=== PATIENT | female | born 1990 | race Caucasian/White ===

== ENCOUNTER → 2019-06-09 | Outpatient (CLI) | payer MEDICARE, MEDICAID ==
--- NOTE | 2019-06-10 09:53 | REP ---
OB ULTRASOUND COMPLETE SECOND TRIMESTER ANATOMY SCREEN: 06/09/2019 CLINICAL HISTORY: Supervision of . FINDINGS: There were no prior studies available for this gestation here. There is a single intrauterine gestation in vertex position. The cervix is 3 cm long and closed. There is a posterior grade 0 placenta without previa or abruption. Amniotic fluid volume is visually normal. No gross abnormalities evaluated in the adnexal regions, which are not optimally visualized due to gestational age. No evidence of a nuchal cord. Biometry:BPD 4.5 cm = 19 weeks 5 days HC 17.1 cm = 19 weeks 5 days AC 14 cm = 19 weeks 3 days FL 3.1 cm = 19 weeks 5 days HL 3.1 cm = 20 weeks 1 day This gives average ultrasound age 19 weeks 3 days with EDC 10/31/2019. By LMP she would be 19 weeks 1 day with EDC 11/02/2019. Estimated weight 299 grams or 10 ounces or 64th percentile for LMP. Measurement ratios are all normal range. ANATOMY SCREEN: The heart rate is 132 and regular. Cranial vault, lateral ventricles, choroid plexus, thalami, cavum septum pellucidum, cerebellum, cisterna magna, face and profile views, nose and lips, lungs, four-chamber heart view, ventricular outflow tracts, diaphragm, left-sided stomach bubble, cord insertion with three-vessels in the cord, kidneys and bladder, transverse and longitudinal views of the entire spine and the upper and lower extremities are all grossly normal without visible anomaly. IMPRESSION: 1. Single intrauterine gestation in 19 weeks 1 day by LMP, 19 weeks 3 days by composite ultrasound criteria today. Accordingly, EDC by LMP 11/02/2019 and the estimated weight 64th percentile for 19 weeks 1 day. 2. Heart rate 132 and normal. There is a vertex position with closed 3 cm long cervix and visually normal amniotic fluid volume. 3. There is a posterior grade 0 placenta without previa or abruption. 4. No visible anomalies. Electronically Signed by Gurpreet Gonzalez MD 06/10/2019 11:15 A
== END ==
LOC: M RAD 17:06
PROVIDERS: ATTEND Obstetrics & Gynecology
DX: Z34.82 Encounter for supervision of other normal pregnancy, second trimester (principal)

== ENCOUNTER → 2019-09-02 | Outpatient (CLI) | payer MEDICARE, MEDICAID ==
--- NOTE | 2019-09-03 07:12 | REP ---
OBSTETRIC SONOGRAPHY: HISTORY: Supervision of growth study. DALJIT. History of systemic lupus. FINDINGS: Scanning through the gravid uterus demonstrates a viable single intrauterine gestation in a cephalic lie. motion is observed and heart rate is recorded at 147 beats per minute. A right lateral grade three placenta is seen without evidence of previa or abruption. Amniotic fluid is subjectively normal. Closed cervical length is viewed transabdominally and measured at 2.7 cm. No extrauterine abnormalities observed. There has been appropriate interval growth. The following anatomic structures are again identified and felt to be unremarkable: cranium, choroid plexus, cavum, cerebellum and posterior fossa, face and profile, lungs, four-chamber heart with left and right ventricular outflow tract views, diaphragm, left-sided stomach, abdominal wall cord insertion, three-vessel cord, kidneys and bladder, spine. BIOMETRY CHART: BPD 7.7 cm = 31 weeks 0 days HC 28.7 cm = 31 weeks 4 days AC 26.0 cm = 30 weeks 1 day FL 6.1 cm = 31 weeks 4 days HL 5.5 cm = 32 weeks 0 days HC/AC ratio normal 1.10 Cephalic index normal 0.75. Estimated weight 1642 grams, 3 pounds 9 ounces, 32nd percentile for 31 weeks 2 days. DALJIT normal 9.0 cm. S/D ratio normal 2.76. IMPRESSION: Viable single intrauterine gestation at 31 weeks 2 days by today's composite sonographic criteria for expected gestational age estimate based on prior sonography is 31 weeks 4 days. KEYSHAWN by prior sonography October 31, 2019. Electronically Signed by Kvng Lomax MD 09/03/2019 09:06 A
== END ==
LOC: M RAD 17:07
PROVIDERS: ATTEND Advanced Practice Midwife
DX: O99.89 Other specified diseases and conditions complicating pregnancy, childbirth and the puerperium (principal); M32.9 Systemic lupus erythematosus, unspecified; Z3A.31 31 weeks gestation of pregnancy

== ENCOUNTER → 2019-09-16 | Outpatient (CLI) | payer MEDICARE, MEDICAID ==
[~2019-09-16] MED LIST: ASPI81TA85 PO; LEVO175T2 PO; MAPA500T2 PO; PLAQ200T4 PO; PRENTAB9 PO; PSEU30TA85 PO; SING10TA32 PO
[2019-09-16 14:01] LABS: HEMATOCRIT 39.2 % (36.0-47.0); HEMOGLOBIN 12.7 g/dl (12.0-15.5); MEAN CORPUSCULAR HEMOGLOBIN 31.7 pg (27.0-33.0); MEAN CORPUSCULAR HGB CONC 32.4 g/dl (32.0-36.5); MEAN CORPUSCULAR VOLUME 97.8 fl (80.0-96.0); PLATELET COUNT, AUTOMATED 176 10^3/uL (150-450); RED BLOOD COUNT 4.01 10^6/uL (4.00-5.40); WHITE BLOOD COUNT 9.6 10^3/uL (4.0-10.0)
[2019-09-16 14:30] LABS: CREATININE,RANDOM URINE 24.6 MG/DL; TOTAL PROTEIN,RANDOM URINE 70.1 MG/DL (0.0-12.0)
[2019-09-16 14:38] LABS: ALT/SGPT 18 U/L (12-78); BILIRUBIN,TOTAL 0.2 MG/DL (0.2-1.0); FREE T4 0.85 NG/DL (0.76-1.46); GLOMERULAR FILTRATION RATE > 60.0 (>60); GLUCOSE CHALLENGE TEST 1 HOUR 91 MG/DL (LESS THAN 140); LDH LACTATE DEHYDROGENASE 258 U/L (84-246); URIC ACID 6.4 MG/DL (2.6-6.0)
--- NOTE | 2019-09-17 09:04 | REP ---
OB ULTRASOUND: Real-time sonographic evaluation of the gravid uterus performed. There is a single living intrauterine gestation with an estimated gestational age 33 weeks 2 days, EDC 11/02/2019. Today's measurements indicate appropriate growth. Biometry and Growth: BPD 88 mm = 32 weeks 2 days, 35th percentile HC 308 mm = 34 weeks 3 days, 67th percentile AC 377 mm = 31 weeks 5 days, 27th percentile FL 63 mm = 32 weeks 5 days, 42nd percentile HC/AC ratio 1.1 within normal range. Estimated weight 1959 grams, 27th percentile. Visualized anatomy today includes lateral ventricles, posterior fossa, four chamber heart, stomach, cord insertion, three vessel cord, kidneys, bladder and spine, which are all grossly unremarkable. Cervical length: Cervix is closed and measures 2.7 cm in length. heart rate: 155 beats per minute. position: Vertex. Placenta: Posterior and to the right, grade 3 with no previa or abruption. Amniotic fluid: Within normal limits. DALJIT 9.7 within normal range of 8.2 to 24.6. Biophysical profile score 8.8. S/D ratio 2.19 within normal range of 2.0 to 3.0. RI: 0.54 below normal range of 0.59 to 0.75. Electronically Signed by Eliud Whatley MD 09/17/2019 11:28 A
== END ==
LOC: M RAD 12:04
PROVIDERS: ATTEND Advanced Practice Midwife
DX: O13.3 Gestational [pregnancy-induced] hypertension without significant proteinuria, third trimester (principal); Z3A.33 33 weeks gestation of pregnancy; E03.9 Hypothyroidism, unspecified; O99.283 Endocrine, nutritional and metabolic diseases complicating pregnancy, third trimester; O26.893 Other specified pregnancy related conditions, third trimester; M32.9 Systemic lupus erythematosus, unspecified

== ENCOUNTER 2019-09-17 12:52 | Outpatient (CLI) | payer MEDICARE, MEDICAID ==
[~2019-09-17] VITALS: Ht 160 cm; Wt 87.1 kg
[2019-09-17] MEDS ORDERED: LEVO175T2 PO (13:48)
[2019-09-17] MEDS ORDERED: PLAQ200T4 PO (13:48)
[2019-09-17] MEDS ORDERED: SING10TA32 PO (13:48)
[2019-09-17] MEDS ORDERED: PSEU30TA85 PO (13:48)
[2019-09-17] MEDS ORDERED: ASPI81TA85 PO (13:48)
[2019-09-17] MEDS ORDERED: MAPA500T2 PO (13:48)
[2019-09-17] MEDS ORDERED: PRENTAB9 PO (13:48)
== END 2019-09-17 14:25 | disposition home or self-care (01) ==
LOC: M LDO 12:52
PROVIDERS: ATTEND Obstetrics & Gynecology
DX: O13.3 Gestational [pregnancy-induced] hypertension without significant proteinuria, third trimester (principal); Z3A.33 33 weeks gestation of pregnancy

== ENCOUNTER 2019-09-23 16:09 | Inpatient (IN) | payer MEDICARE, MEDICAID ==
[~2019-09-23] VITALS: Ht 160 cm; Wt 88.1 kg
[2019-09-23] VITALS (9 sets, daily range): BP systolic 138–174; BP diastolic 65–84
[2019-09-23] MEDS ORDERED: BETAMETHASONE SOLUSPAN 6MG/ML INJ 5ML (J0702) IM SCH (17:30)
--- NOTE | 2019-09-23 17:53 | HPEPDOC ---
Obstetrical History & Physical General Date of Admission Sep 23, 2019 at 17:14 Primary Care Physician: LINDSEY NEGRETE CNM History of Present Illness Patient is a 29-year-old female who is a at 34.2 weeks gestation with an KEYSHAWN of 11/02/19 based off of a first trimester ultrasound. She initiated care in her first trimester with AWP. Her has been complicated by lupus and hypothyroidism. She presents to L&D after being sent over from the office with severe range pressures. She denies any preeclamptic symptoms beyond feeling fatigued and "not like herself." She rpeorts active movement. She denies leaking of fluid, contractions, or vaginal bleeding. Chief Complaint: Pre-eclamsia Information Provided By: Patient Age: 29 : 1 Term: 0 Pre-term: 0 Abortions: 0 Livin Care Care: Good Care Dating Final EDC: Nov 02, 2019 Final EDC by: 1st trimester (US) EGA at Admission: 342 Antepartum Course Diagnos(e)s Preeclampsia with severe features Lupus Baljeet's Height (inches): 63 Pre- weight (lbs.): 136 Admission Weight (lbs.): 194 Change in Weight (lbs.): 58 Past Medical History Past Obstetrical History : Past Obstetrical History: Primgravida Past Medical History Medical History Hypothyroidism Lupus Baljeet's Surgical History: Upper endoscopy Family History Significant Family History: Diabetes, Heart disease, Hypertension, Renal diseas e, Other (lupus) Social History Marital Status: Single Family situation: Spouse/partner home Psychosocial History: No pertinent psych hx * Smoker: non-smoker Alcohol: Denies Drugs: denies Abuse Violence Screening Have you been hit/kicked/slapp: No Have you been sexually assault: No Allergies Coded Allergies: adhesive (Verified Allergy, Severe, 09/17/19) blisters amoxicillin (Verified Allergy, Intermediate, 09/17/19) rash Medications Scheduled Aspirin (Aspir 81) 81 Mg Tablet.dr, 81 MG PO DAILY for pain Lactobacillus Combo No.11 (Probiotic) 1 Each Cap.sprink, 1 CAP PO DAILY Levothyroxine Sodium (Levothyroxine Sodium) 175 Mcg Tablet, 175 MCG PO DAILY Montelukast Sodium (Singulair) 10 Mg Tablet, 1 TAB PO DAILY No.137/Iron/Folic Acd ( Vitamin Tablet) 1 Each Tablet, 1 TAB PO DAILY Vitamin D (Vitamin D3) 1,000 Unit Tablet, 400 UNITS PO DAILY Scheduled PRN Albuterol Sulfate (Ventolin Hfa) 18 Gm Hfa.aer.ad, 2 PUFF INH Q4-6HP PRN for wheezing Miscellaneous Medications Hydroxychloroquine Sulfate (Plaquenil) 200 Mg Tablet, 200 MG PO Physical Examination Physical Examination GENERAL: Alert and oriented times three. BREAST: . ABDOMEN: Gravid and non-tender to touch. FETUS: Is vertex (VTX) by sterile vaginal examination (SVE), fetus is vertex (VTX) by Daniel. HEART RATE: Regular rate and rhythm. LUNGS: Clear to auscultation (CTA). EXTREMITIES: Pitting edema on legs and feet. No clonus. Deep tendon reflexes (DTRs) + 3. Vital Signs/I&O Vital Signs Label Value Date Time Pulse 89 09/23/19 1835 Blood Pressure Assessment 192/86 09/23/19 1835 Laboratory Data 24H LABS Item Value Date Time Creatinine 0.83 MG/DL 09/23/19 1801 Glomerular Filtration Rate > 60.0 09/23/19 1801 Uric Acid 7.5 MG/DL H 09/23/19 1801 Total Bilirubin 0.2 MG/DL 09/23/19 1801 Aspartate Amino Transf (AST/SGOT) 28 U/L 09/23/19 1801 Alanine Aminotransferase (ALT/SGPT) 23 U/L 09/23/19 1801 Lactate Dehydrogenase 290 U/L H 09/23/19 1801 Item Value Date Time Urine Random Creatinine 41.9 MG/DL 09/23/19 1801 Urine Random Total Protein 137.5 MG/DL H 09/23/19 1801 CBC/BMP Item Value Date Time White Blood Count 10.3 10^3/uL H 09/23/19 1801 Red Blood Count 4.04 10^6/uL 09/23/19 1801 Hemoglobin 12.6 g/dl 09/23/19 1801 Hematocrit 39.1 % 09/23/19 1801 Mean Corpuscular Volume 96.8 fl H 09/23/19 1801 Mean Corpuscular Hemoglobin 31.2 pg 09/23/19 1801 Mean Corpuscular Hemoglobin Concent 32.2 g/dl 09/23/19 1801 Red Cell Distribution Width 14.4 % 09/23/19 1801 Platelet Count 175 10^3/uL 09/23/19 1801 Urine Culture: No Growth Pertinent Laboratoy Data Blood Type: B+ RBC Antibody Screen: Negative HIV: Negative Hepatitis B: Negative Hepatitis C: Negative Rapid Plasma Reagin: Nonreactive Rubella: Immune Chlamydia/Gonorrhea: Negative Group B Streptococcus: Unknown Diag/Inter Therapy NIPT: low risk normal male Assessment Heart Rate (FHR): 120 Variability: Moderate Accelerations: Positive Decelerations: None Tocometer Contractions: Yes Frequency: irregular Assessment/Plan Assessment IUP at 34.2 weeks gestation preeclampsia with severe features Category I FHR tracing GBS unknown Plan Dr. Kerns consulted on plan of care. Admit patient to L&D. OOB to BR. Diet: NPO. Group B Streptococcus (GBS) unknown. Labs and intravenous (IV) per unit protocol. Labetalol 20 mg via IV to be given stat. Magnesium 4 gram loading dose followed by 2 grams per hour. Lactated Ringers (LR): 75 mL/hr. Consider betamethasone. Anesthesia and neonatology consult done. Patient counseled on delivery and mode of delivery due to increasing pressures and status of labs. section to be done per Dr. Kerns's recommendation. LINDSEY NEGRETE CNM Sep 23, 2019 17:53
[2019-09-23] MEDS ORDERED: LABETALOL HCL 100 MG/20 ML VIAL IV STA ×2 (18:09→23:14)
[2019-09-23] MEDS ORDERED: LABETALOL HCL 100 MG/20 ML VIAL As Ordered ONE (18:10)
[2019-09-23] MEDS ORDERED: MAGNESIUM SULFATE 4% INJ 20GM/500ML (40MG/ML) (J3475) As Ordered ONE (18:23)
[2019-09-23] MEDS ORDERED: MAGNESIUM *L&D* 4 GM/100 ML BAG (40MG/ML) (J3475) As Ordered ONE (18:23)
[2019-09-23 18:28] LABS: HEMATOCRIT 39.1 % (36.0-47.0); HEMOGLOBIN 12.6 g/dl (12.0-15.5); MEAN CORPUSCULAR HEMOGLOBIN 31.2 pg (27.0-33.0); MEAN CORPUSCULAR HGB CONC 32.2 g/dl (32.0-36.5); MEAN CORPUSCULAR VOLUME 96.8 fl (80.0-96.0); PLATELET COUNT, AUTOMATED 175 10^3/uL (150-450); RED BLOOD COUNT 4.04 10^6/uL (4.00-5.40); WHITE BLOOD COUNT 10.3 10^3/uL (4.0-10.0)
[2019-09-23] MEDS ORDERED: CHOL100029 PO (18:44)
[2019-09-23] MEDS ORDERED: PROBCAP17 PO (18:44)
[2019-09-23] MEDS ORDERED: VENTAER INH (18:44)
[2019-09-23 18:46] LABS: ALT/SGPT 23 U/L (12-78); BILIRUBIN,TOTAL 0.2 MG/DL (0.2-1.0); CREATININE FOR GFR 0.83 MG/DL (0.55-1.30); GLOMERULAR FILTRATION RATE > 60.0 (>60); LDH LACTATE DEHYDROGENASE 290 U/L (84-246); URIC ACID 7.5 MG/DL (2.6-6.0)
[2019-09-23 18:59] LABS: CREATININE,RANDOM URINE 41.9 MG/DL; TOTAL PROTEIN,RANDOM URINE 137.5 MG/DL (0.0-12.0)
[2019-09-23] MEDS ORDERED: hydrALAZINE INJ 20 MG/ML VIAL IV ONE (19:00)
[2019-09-23] MEDS ORDERED: MAGNESIUM *L&D* 4 GM/100 ML BAG (40MG/ML) (J3475) IV ONE (19:00)
[2019-09-23] MEDS ORDERED: ceFAZolin 2 GM/D5W 50 ML IV BAG (J0690 PER 500MG) As Ordered ONE (19:41)
[2019-09-23] MEDS ORDERED: BICITRA 30ML SOLN UDC As Ordered ONE (19:42)
[2019-09-23] MEDS ORDERED: ceFAZolin SOD 2 GM in IV 1 EA IV ONE (19:45)
[2019-09-23] MEDS ORDERED: BICITRA 30ML SOLN UDC PO ONE (19:45)
[2019-09-23] MEDS ORDERED: dexameTHASONE 4 MG/ML 1ML VIAL (J1100) As Ordered ONE (19:59)
[2019-09-23] MEDS ORDERED: KETOROLAC 60 MG/2 ML VIAL (J1885) As Ordered ONE (19:59)
[2019-09-23] MEDS ORDERED: OXYTOCIN INJ 10 UNITS/ML VIAL (J2590) As Ordered ONE (19:59)
[2019-09-23] MEDS ORDERED: ONDANSETRON 4MG/2ML VIAL (J2405) As Ordered ONE (19:59)
[2019-09-23] MEDS ORDERED: fentaNYL 100 MCG/2 ML INJECTION (J3010) As Ordered ONE (20:00)
[2019-09-23] MEDS ORDERED: MORPHINE PRES-FREE INJ 10 MG/10 ML VIAL (J2274) As Ordered ONE (20:02)
[2019-09-23] MEDS ORDERED: NALOXONE INJ 0.4 MG/1 ML VIAL (J2310) IV PRN ×2 (20:14)
[2019-09-23] MEDS ORDERED: diphenhydrAMINE INJ 50MG/ML VIAL (J1200) IV PRN (20:14)
[2019-09-23] MEDS ORDERED: ONDANSETRON 4MG/2ML VIAL (J2405) IV PRN ×2 (20:14→22:00)
[2019-09-23] MEDS ORDERED: NALBUPHINE HCL 10 MG/ML AMP (J2300) IV PRN (20:14)
[2019-09-23] MEDS ORDERED: METOCLOPRAMIDE INJ 10MG/2ML VIAL (J2765) IV PRN (20:14)
[2019-09-23] MEDS ORDERED: ePHEDrine SULFATE 25 MG/5 ML(5MG/ML) SYRINGE As Ordered ONE (20:30)
[2019-09-23 20:53] LABS: CORD GAS ABE V -4.8; CORD GAS HCO3 V 21.8 MEQ/L; CORD GAS O2 SAT V 26.9 %; CORD GAS PCO2 V 45.9 mmHg; CORD GAS PH V 7.295 UNITS; CORD GAS PO2 V 16.3 mmHg; CORD GAS SBC V 18.7 MEQ/L; CORD GAS TCO2 V 23.2 MEQ/L
[2019-09-23 20:56] LABS: CORD GAS ABE A -4.1; CORD GAS HCO3 A 24.5 MEQ/L; CORD GAS O2 SAT A < 15.0 %; CORD GAS PCO2 A 58.3 mmHg; CORD GAS PH A 7.242 UNITS; CORD GAS PO2 A 10.8 mmHg; CORD GAS TCO2 A 26.3 MEQ/L
[2019-09-23 20:59] LABS: CORD GAS SBC A 24.5 MEQ/L
[2019-09-23] MEDS: MAG Sulf (OBGYN) 20GM/500ML 20,000 MG in IV 1 EA IV SCH (21:25)
[2019-09-23] MEDS ORDERED: OXYTOCIN DRIP 30 UNITS in IV 1 EA IV SCH (21:32)
[2019-09-23] MEDS ORDERED: MEASLES,MUMPS,RUBELLA VACCINE INJ (MMR-II) (90707) SC SCH (21:45)
[2019-09-23] MEDS ORDERED: PROMETHAZINE 25 MG TAB PO PRN (21:45)
[2019-09-23] MEDS ORDERED: RHOGAM 300 MCG (1500 IU) INJ (J2790) IM SCH (21:45)
[2019-09-23] MEDS ORDERED: ONDANSETRON 4 MG TAB (S0181) PO PRN (21:45)
[2019-09-23 21:53] LABS: HEMATOCRIT 33.3 % (36.0-47.0); HEMOGLOBIN 10.7 g/dl (12.0-15.5); MEAN CORPUSCULAR HEMOGLOBIN 31.8 pg (27.0-33.0); MEAN CORPUSCULAR HGB CONC 32.1 g/dl (32.0-36.5); MEAN CORPUSCULAR VOLUME 99.1 fl (80.0-96.0); PLATELET COUNT, AUTOMATED 135 10^3/uL (150-450); RED BLOOD COUNT 3.36 10^6/uL (4.00-5.40); WHITE BLOOD COUNT 10.8 10^3/uL (4.0-10.0)
[2019-09-23] MEDS ORDERED: fentaNYL 100 MCG/2 ML INJECTION (J3010) IV PRN (22:00)
[2019-09-23] MEDS ORDERED: LR 1,000 ML IV SCH (22:00)
[2019-09-23 22:16] LABS: CREATININE FOR GFR 0.84 MG/DL (0.55-1.30); GLOMERULAR FILTRATION RATE > 60.0 (>60)
[2019-09-24] VITALS (42 sets, daily range): BP systolic 97–180; BP diastolic 53–94
[2019-09-24] MEDS ORDERED: LABETALOL HCL 100 MG/20 ML VIAL IV STA ×2 (01:09→19:56)
[2019-09-24] MEDS ORDERED: ENOXAPARIN 40 MG/0.4 ML SYRINGE (J1650) SC ONE (03:00)
[2019-09-24] MEDS: KETOROLAC 30 MG/ML VIAL (J1885) IV SCH ×3 (03:17→15:26)
[2019-09-24] MEDS: LR 1,000 ML IV SCH ×2 (04:08→17:16)
[2019-09-24 05:55] LABS: HEMATOCRIT 36.7 % (36.0-47.0); HEMOGLOBIN 11.7 g/dl (12.0-15.5); MEAN CORPUSCULAR HGB CONC 31.9 g/dl (32.0-36.5); MEAN CORPUSCULAR VOLUME 97.3 fl (80.0-96.0); PLATELET COUNT, AUTOMATED 153 10^3/uL (150-450); RED BLOOD COUNT 3.77 10^6/uL (4.00-5.40); WHITE BLOOD COUNT 14.8 10^3/uL (4.0-10.0)
[2019-09-24] MEDS: MAG Sulf (OBGYN) 20GM/500ML 20,000 MG in IV 1 EA IV SCH ×2 (06:10→15:26)
[2019-09-24] MEDS: PRENATAL VITAMINS CHEWABLE TABLET PO SCH (08:49)
[2019-09-24] MEDS: DOCUSATE SODIUM 100 MG CAP PO SCH ×2 (08:49→21:53)
[2019-09-24] MEDS: PERCOCET 5MG/325MG TAB PO PRN ×2 (08:50→17:30)
[2019-09-24] MEDS: LEVOTHYROXINE 125MCG TABLET (0.125MG) PO SCH (09:31)
[2019-09-24] MEDS: LEVOTHYROXINE 50MCG TABLET (0.05MG) PO SCH (09:32)
[2019-09-24] MEDS: ENOXAPARIN 40 MG/0.4 ML SYRINGE (J1650) SC SCH (10:33)
[2019-09-24] MEDS ORDERED: zolPIDEM TARTRATE 5 MG TAB PO ONE (11:00)
[2019-09-24] MEDS ORDERED: SODIUM CHLORIDE NASAL 0.65% SPRAY BTL (OCEAN) PRN (19:00)
[2019-09-24] MEDS: LABETALOL 200 MG TAB PO SCH (19:16)
[2019-09-24] MEDS: IBUPROFEN 800 MG TAB PO SCH (21:53)
[2019-09-25] VITALS (12 sets, daily range): BP systolic 109–184; BP diastolic 61–98
[2019-09-25] MEDS: PERCOCET 5MG/325MG TAB PO PRN ×5 (00:28→22:22)
[2019-09-25] MEDS: LEVOTHYROXINE 125MCG TABLET (0.125MG) PO SCH (06:07)
[2019-09-25] MEDS: LEVOTHYROXINE 50MCG TABLET (0.05MG) PO SCH (06:07)
[2019-09-25] MEDS: IBUPROFEN 800 MG TAB PO SCH ×3 (06:57→23:04)
[2019-09-25] MEDS: ENOXAPARIN 40 MG/0.4 ML SYRINGE (J1650) SC SCH (08:13)
[2019-09-25] MEDS: PRENATAL VITAMINS CHEWABLE TABLET PO SCH (08:14)
[2019-09-25] MEDS: DOCUSATE SODIUM 100 MG CAP PO SCH ×2 (08:14→21:38)
[2019-09-25] MEDS: LABETALOL 200 MG TAB PO SCH ×3 (08:17→21:39)
[2019-09-26] VITALS (8 sets, daily range): BP systolic 138–178; BP diastolic 82–98
[2019-09-26] MEDS: LEVOTHYROXINE 125MCG TABLET (0.125MG) PO SCH (06:04)
[2019-09-26] MEDS: LEVOTHYROXINE 50MCG TABLET (0.05MG) PO SCH (06:04)
[2019-09-26] MEDS: PERCOCET 5MG/325MG TAB PO PRN ×4 (06:05→20:07)
[2019-09-26] MEDS: IBUPROFEN 800 MG TAB PO SCH ×3 (07:47→23:19)
[2019-09-26] MEDS: LABETALOL 200 MG TAB PO SCH (07:47)
[2019-09-26] MEDS ORDERED: LABETALOL 100 MG TAB PO ONE (08:30)
[2019-09-26] MEDS: DOCUSATE SODIUM 100 MG CAP PO SCH ×2 (09:10→20:58)
[2019-09-26] MEDS: PRENATAL VITAMINS CHEWABLE TABLET PO SCH (09:10)
[2019-09-26] MEDS: ENOXAPARIN 40 MG/0.4 ML SYRINGE (J1650) SC SCH (09:11)
[2019-09-26] MEDS: LABETALOL 100 MG TAB PO SCH ×2 (15:05→21:00)
[2019-09-26] MEDS ORDERED: NIFEdipine 10 MG CAP PO ONE (23:00)
[2019-09-27] VITALS (9 sets, daily range): BP systolic 127–180; BP diastolic 77–98
[2019-09-27] MEDS: PERCOCET 5MG/325MG TAB PO PRN ×5 (01:24→20:56)
[2019-09-27] MEDS: LEVOTHYROXINE 50MCG TABLET (0.05MG) PO SCH (06:14)
[2019-09-27] MEDS: LEVOTHYROXINE 125MCG TABLET (0.125MG) PO SCH (06:14)
[2019-09-27] MEDS: IBUPROFEN 800 MG TAB PO SCH ×3 (06:57→22:33)
[2019-09-27] MEDS: LABETALOL 200 MG TAB PO SCH ×3 (06:58→20:57)
[2019-09-27] MEDS: PRENATAL VITAMINS CHEWABLE TABLET PO SCH (08:47)
[2019-09-27] MEDS: DOCUSATE SODIUM 100 MG CAP PO SCH ×2 (08:47→20:56)
[2019-09-27] MEDS: ENOXAPARIN 40 MG/0.4 ML SYRINGE (J1650) SC SCH (08:48)
[2019-09-27] MEDS ORDERED: NIFEdipine 30 MG XL TAB PO ONE ×2 (21:00)
[2019-09-28 02:30] VITALS: BP 156/77
[2019-09-28 06:04] VITALS: BP 142/75
[2019-09-28] MEDS: LEVOTHYROXINE 125MCG TABLET (0.125MG) PO SCH (06:19)
[2019-09-28] MEDS: LEVOTHYROXINE 50MCG TABLET (0.05MG) PO SCH (06:19)
[2019-09-28] MEDS: IBUPROFEN 800 MG TAB PO SCH (06:20)
[2019-09-28] MEDS: PRENATAL VITAMINS CHEWABLE TABLET PO SCH (08:40)
[2019-09-28] MEDS: DOCUSATE SODIUM 100 MG CAP PO SCH (08:40)
[2019-09-28] MEDS: ENOXAPARIN 40 MG/0.4 ML SYRINGE (J1650) SC SCH (08:41)
[2019-09-28 08:57] VITALS: BP 166/98
[2019-09-28] MEDS ORDERED: LABE20TAB PO (08:59)
[2019-09-28] MEDS: PERCOCET 5MG/325MG TAB PO PRN (08:59)
[2019-09-28] MEDS ORDERED: IBUP80TA PO (08:59)
[2019-09-28] MEDS ORDERED: PERCOCET PO (08:59)
[2019-09-28 09:01] VITALS: BP 166/98
[2019-09-28] MEDS: LABETALOL 200 MG TAB PO SCH (09:01)
--- NOTE | 2019-09-28 09:10 | DS.PDOC ---
Discharge Summary General Date of Admission Sep 23, 2019 at 17:14 Date of Discharge 09/28/2019 Attending Physician: VERONICA BANKS DO Discharge Summary PROCEDURES PERFORMED DURING STAY: primary section. ADMITTING DIAGNOSES: 1. IUP at 34+ weeks with preeclampsia with severe features. DISCHARGE DIAGNOSES: 1. postoperative day 5. 2. Preeclampsia with severe features. COMPLICATIONS/CHIEF COMPLAINT: Bp Monitoring. HISTORY OF PRESENT ILLNESS: Patient is a 29-year-old female who presented to L&D after being sent over from the office with multiple severe range BP's. She was given labetalol to help decrease her BP and put on Magnesium. the decision was made due to her BP's to proceed with a primary section. Her spot urine was over 3. After her section she continued on Magnesium for 24 hours and was placed on Lovenox due to preeclampsia and lupus. She has also been placed on Labetalol 400 mg TID to help manage her BP's. She has continued to deny any preeclamptic symptoms. DISCHARGE MEDICATIONS: Please see below. ALLERGIES: Please see below. PHYSICAL EXAMINATION ON DISCHARGE: VITAL SIGNS: Please see below. GENERAL: HEENT: NECK: CARDIOVASCULAR EXAMINATION: RESPIRATORY EXAMINATION: ABDOMINAL EXAMINATION: EXTREMITIES: SKIN: NEUROLOGICAL EXAMINATION: PSYCHIATRIC EXAMINATION: LABORATORY DATA: Please see below. ACTIVITY: No heavy lifting and pelvic rest. DIET: regular DISCHARGE INSTRUCTIONS: 1. Patient to be discharged to home today. 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 2. She is to follow up in 1-3 days for a repeat BP check in the office and 1 week for BP check and incision check. She also will be seen in 6-8 weeks for visit. 3. Extensive education done on preeclamptic symptoms, mastitis, infection, incision care, pain management, DVT, pulmonary embolism and fever, pelvic rest. DISCHARGE CONDITION: Stable. TIME SPENT ON DISCHARGE: Greater than minutes. Vital Signs/I&Os Vital Signs Date Time Temp Pulse Resp B/P (MAP) Pulse Ox O2 Delivery O2 Flow Rate FiO2 09/28/19 08:59 16 09/28/19 08:57 80 166/98 (120) 09/28/19 06:04 98.1 09/28/19 02:30 Room Air 09/27/19 20:33 99 Discharge Medications Scheduled Labetalol HCl (Labetalol HCl) 200 Mg Tablet, 400 MG PO TID Lactobacillus Combo No.11 (Probiotic) 1 Each Cap.sprink, 1 CAP PO DAILY, (Reported) Levothyroxine Sodium (Levothyroxine Sodium) 175 Mcg Tablet, 175 MCG PO DAILY, (Reported) Montelukast Sodium (Singulair) 10 Mg Tablet, 1 TAB PO DAILY, (Reported) No.137/Iron/Folic Acd ( Vitamin Tablet) 1 Each Tablet, 1 TAB PO DAILY, (Reported) Vitamin D (Vitamin D3) 1,000 Unit Tablet, 400 UNITS PO DAILY, (Reported) Scheduled PRN Albuterol Sulfate (Ventolin Hfa) 18 Gm Hfa.aer.ad, 2 PUFF INH Q4-6HP PRN for w heezing, (Reported) Ibuprofen (Ibuprofen) 800 Mg Tablet, 800 MG PO Q8HP PRN for PAIN Oxycodone/Acetaminophen (Oxycodone-Acetaminophen 5-325) 1 Each Tablet, 1 TAB PO Q4HP PRN for MILD/MODERATE PAIN (PS 1-7) Miscellaneous Medications Hydroxychloroquine Sulfate (Plaquenil) 200 Mg Tablet, 200 MG PO, (Reported) Allergies Coded Allergies: adhesive (Verified Allergy, Severe, 09/17/19) blisters amoxicillin (Verified Allergy, Intermediate, 09/17/19) rash LINDSEY NEGRETE CNM Sep 28, 2019 09:10
== END 2019-09-28 13:00 | disposition home or self-care (01) | DRG 788 ==
LOC: M LDO 16:09 → M LDI 17:14 → M OBS 09-24 23:00
PROVIDERS: ADMIT Advanced Practice Midwife; ATTEND Obstetrics & Gynecology
PROC: 10D00Z1 Extraction of Products of Conception, Low, Open Approach (ICD-10-PCS; principal; 2019-09-24)
DX: O14.14 Severe pre-eclampsia complicating childbirth (principal); Z3A.34 34 weeks gestation of pregnancy; E03.9 Hypothyroidism, unspecified; O99.284 Endocrine, nutritional and metabolic diseases complicating childbirth; M32.9 Systemic lupus erythematosus, unspecified; O26.893 Other specified pregnancy related conditions, third trimester; Z79.899 Other long term (current) drug therapy; Z88.0 Allergy status to penicillin

== ENCOUNTER → 2022-09-06 | Outpatient (REF) | payer MEDICARE, MEDICAID ==
[~2022-09-06] MED LIST changes: -ASPI81TA85 PO; +ASPI81TA86 PO; +CHOL100029 PO; +IBUP80TA PO; +LABE20TAB PO; +PERCOCET PO; +PROBCAP17 PO; -PSEU30TA85 PO; +PSEU30TA86 PO; +VENTAER INH
== END ==
LOC: M PLALAB 16:05
PROVIDERS: ATTEND Advanced Practice Midwife
DX: Z34.82 Encounter for supervision of other normal pregnancy, second trimester (principal)

== ENCOUNTER → 2022-10-17 | Outpatient (CLI) | payer MEDICARE, MEDICAID ==
[~2022-10-17] MED LIST changes: +MONT-5 PO; -SING10TA32 PO
== END ==
LOC: M RAD 16:20
PROVIDERS: ATTEND Advanced Practice Midwife
DX: O32.1XX0 Maternal care for breech presentation, not applicable or unspecified (principal); Z3A.20 20 weeks gestation of pregnancy

== ENCOUNTER → 2023-01-02 | Outpatient (CLI) | payer MEDICARE, MEDICAID ==
[2023-01-02 18:15] LABS: HEMATOCRIT 38.4 % (36.0-47.0); HEMOGLOBIN 12.5 g/dl (12.0-15.5); MEAN CORPUSCULAR HEMOGLOBIN 29.1 pg (27.0-33.0); MEAN CORPUSCULAR HGB CONC 32.6 g/dl (32.0-36.5); MEAN CORPUSCULAR VOLUME 89.5 fl (80.0-96.0); PLATELET COUNT, AUTOMATED 259 10^3/uL (150-450); RED BLOOD COUNT 4.29 10^6/uL (4.00-5.40); WHITE BLOOD COUNT 11.3 10^3/uL (4.0-10.0)
[2023-01-02 18:32] LABS: URIC ACID 7.9 MG/DL (3.1-7.8)
[2023-01-02 18:33] LABS: TOTAL PROTEIN,RANDOM URINE 8.8 MG/DL (0.0-14.0)
[2023-01-02 18:34] LABS: LDH LACTATE DEHYDROGENASE 209 U/L (120-246)
[2023-01-02 18:35] LABS: ALT/SGPT 19 U/L (7.0-40); AST/SGOT 23 U/L (<34); BILIRUBIN,TOTAL 0.2 MG/DL (0.3-1.2); CREATININE FOR GFR 0.83 MG/DL (0.55-1.30); GLOMERULAR FILTRATION RATE > 60.0 (>60)
[2023-01-02 18:37] LABS: CREATININE,RANDOM URINE 62.5 MG/DL
[2023-01-02 19:02] LABS: HIV 1&2 SCREEN CENTAUR NEGATIVE (NEGATIVE)
[2023-01-02 19:10] LABS: HEPATITIS C VIRUS ABY INDEX < 0.0 INDEX (<0.8)
[2023-01-02 19:32] LABS: GC DNA AMPLIFICATION NEGATIVE (NEGATIVE)
[2023-01-05 15:10] LABS: CARDIOLIPIN IGA ANTIBODY <9 APL U/mL (0-11); CARDIOLIPIN IGG ANTIBODY <9 GPL U/mL (0-14); CARDIOLIPIN IGM ANTIBODY <9 MPL U/mL (0-12); SSA SJOGRENS A <0.2 AI (0.0-0.9); SSB SJOGRENS B <0.2 AI (0.0-0.9)
== END ==
LOC: M PLALAB 14:22
PROVIDERS: ATTEND Advanced Practice Midwife
DX: O99.112 Other diseases of the blood and blood-forming organs and certain disorders involving the immune mechanism complicating pregnancy, second trimester (principal); Z79.899 Other long term (current) drug therapy

== ENCOUNTER → 2023-01-02 | Outpatient (CLI) | payer MEDICARE, MEDICAID | LOC: M PLALAB 14:24 | PROVIDERS: ATTEND Advanced Practice Midwife | DX: Z34.82 Encounter for supervision of other normal pregnancy, second trimester (principal) ==

== ENCOUNTER → 2023-01-02 | Outpatient (CLI) | payer MEDICARE, MEDICAID | LOC: M PLALAB 14:27 | PROVIDERS: ATTEND Obstetrics & Gynecology | DX: Z34.81 Encounter for supervision of other normal pregnancy, first trimester (principal) ==

== ENCOUNTER → 2023-01-08 | Outpatient (REF) | payer MEDICARE, MEDICAID ==
[2023-01-08 18:22] LABS: TOTAL PROTEIN,RANDOM URINE 33.8 MG/DL (0.0-14.0)
[2023-01-08 18:26] LABS: CREATININE,RANDOM URINE 107.5 MG/DL
== END ==
LOC: M SFHCWAGY 17:29
PROVIDERS: ATTEND Obstetrics & Gynecology
DX: M32.9 Systemic lupus erythematosus, unspecified (principal)

== ENCOUNTER → 2023-01-29 | Outpatient (REF) | payer MEDICARE, MEDICAID ==
[~2023-01-29] MED LIST changes: +CALC-354 PO
== END ==
LOC: M PLALAB 13:30
PROVIDERS: ATTEND Obstetrics & Gynecology
DX: O13.3 Gestational [pregnancy-induced] hypertension without significant proteinuria, third trimester (principal); Z3A.36 36 weeks gestation of pregnancy

== ENCOUNTER → 2023-01-29 | Outpatient (CLI) | payer MEDICARE, MEDICAID ==
[2023-01-29 19:34] LABS: HEMATOCRIT 36.2 % (36.0-47.0); HEMOGLOBIN 11.8 g/dl (12.0-15.5); MEAN CORPUSCULAR HEMOGLOBIN 28.4 pg (27.0-33.0); MEAN CORPUSCULAR HGB CONC 32.6 g/dl (32.0-36.5); PLATELET COUNT, AUTOMATED 260 10^3/uL (150-450); RED BLOOD COUNT 4.16 10^6/uL (4.00-5.40); WHITE BLOOD COUNT 11.2 10^3/uL (4.0-10.0)
[2023-01-29 19:52] LABS: URIC ACID 9.9 MG/DL (3.1-7.8)
[2023-01-29 19:55] LABS: ALT/SGPT 11 U/L (7.0-40); AST/SGOT 20 U/L (<34); BILIRUBIN,TOTAL 0.2 MG/DL (0.3-1.2); CREATININE FOR GFR 1.03 MG/DL (0.55-1.30); CREATININE,RANDOM URINE 106.3 MG/DL; GLOMERULAR FILTRATION RATE > 60.0 (>60); LDH LACTATE DEHYDROGENASE 210 U/L (120-246)
== END ==
LOC: M PLALAB 14:54
PROVIDERS: ATTEND Obstetrics & Gynecology
DX: O13.3 Gestational [pregnancy-induced] hypertension without significant proteinuria, third trimester (principal); Z3A.36 36 weeks gestation of pregnancy

== ENCOUNTER → 2024-10-22 | Outpatient (CLI) | payer MEDICARE, MEDICAID ==
[~2024-10-22] MED LIST changes: -PSEU30TA86 PO; +PSEU30TA87 PO
[2024-10-22 19:43] LABS: BASO # 0.1 10^3/uL (0.0-0.2); BASO % 0.9 % (0.0-1.0); EOS # 0.6 10^3/uL (0.0-0.5); EOS % 7.5 % (0.0-3.0); HEMATOCRIT 39.9 % (36.0-47.0); HEMOGLOBIN 12.8 g/dl (12.0-15.5); LYMPH # 3.3 10^3/uL (1.5-5.0); LYMPH % 38.8 % (24.0-44.0); MEAN CORPUSCULAR HEMOGLOBIN 29.2 pg (27.0-33.0); MEAN CORPUSCULAR HGB CONC 32.1 g/dl (32.0-36.5); MEAN CORPUSCULAR VOLUME 90.9 fl (80.0-96.0); MONO # 0.7 10^3/uL (0.0-0.8); MONO % 7.9 % (2.0-8.0); NEUTROPHILS # 3.8 10^3/uL (1.5-8.5); NEUTROPHILS % 44.7 % (36.0-66.0); PLATELET COUNT, AUTOMATED 334 10^3/uL (150-450); RED BLOOD COUNT 4.39 10^6/uL (4.00-5.40); WHITE BLOOD COUNT 8.5 10^3/uL (4.0-10.0)
[2024-10-22 19:49] LABS: C REACTIVE PROTEIN QUANTITATIV < 0.50 MG/DL (<1.0)
[2024-10-22 19:50] LABS: ALBUMIN 4.1 G/DL (3.2-5.2); ALKALINE PHOSPHATASE 66 U/L (35-104); ALT/SGPT 33 U/L (7.0-40); AST/SGOT 19 U/L (<34); BILIRUBIN,TOTAL 0.2 MG/DL (0.3-1.2); BLOOD UREA NITROGEN 11 MG/DL (9-23); CALCIUM LEVEL 9.2 MG/DL (8.5-10.1); CARBON DIOXIDE LEVEL 24 MMOL/L (20-31); CHLORIDE LEVEL 107 MMOL/L (98-107); CREATININE FOR GFR 0.72 MG/DL (0.55-1.30); GLOMERULAR FILTRATION RATE > 60.0 (>60); GLUCOSE, FASTING 112 MG/DL (60-100); SODIUM LEVEL 138 MMOL/L (136-145); TOTAL PROTEIN 7.1 G/DL (5.7-8.2)
[2024-10-22 19:51] LABS: RHEUMATOID FACTOR QUANT < 3.5 IU/ML (<14); THYROID STIMULATING HORMONE 2.572 uIU/ML (0.55-4.78)
[2024-10-22 19:52] LABS: ERYTHROCYTE SEDIMENTATION RATE 20 mm/hr (0-20); FREE T4 1.27 NG/DL (0.89-1.76); TOTAL 25(OH) VITAMIN D 6.9 NG/ML (20.0-100.0)
[2024-10-22 19:58] LABS: CPK CREATINE PHOSPHOKINASE 61 U/L (34-145); URIC ACID 4.3 MG/DL (3.1-7.8)
== END ==
LOC: M WUC 15:03
PROVIDERS: ATTEND Physician Assistant
DX: Z00.00 Encounter for general adult medical examination without abnormal findings (principal); E06.3 Autoimmune thyroiditis; E55.9 Vitamin D deficiency, unspecified; M32.9 Systemic lupus erythematosus, unspecified

== ENCOUNTER → 2025-06-24 | Outpatient (REF) | payer MEDICARE, MEDICAID ==
[2025-06-24 15:30] LABS: BASO # 0.1 10^3/uL (0.0-0.2); BASO % 1.2 % (0.0-1.0); EOS # 0.6 10^3/uL (0.0-0.5); EOS % 7.5 % (0.0-3.0); LYMPH # 2.3 10^3/uL (1.5-5.0); LYMPH % 30.3 % (24.0-44.0); MONO # 0.6 10^3/uL (0.0-0.8); MONO % 8.5 % (2.0-8.0); NEUTROPHILS # 3.9 10^3/uL (1.5-8.5); NEUTROPHILS % 52.4 % (36.0-66.0); PLATELET COUNT, AUTOMATED 320 10^3/uL (150-450)
[2025-06-24 15:34] LABS: ERYTHROCYTE SEDIMENTATION RATE 22 mm/hr (0-20)
[2025-06-24 15:46] LABS: APPEARANCE, URINE HAZY (CLEAR); BACTERIA, URINE AUTO NEGATIVE (NEGATIVE); BILIRUBIN, URINE AUTO NEGATIVE (NEGATIVE); BLOOD, URINE BLOOD 1+ (NEGATIVE); GLUCOSE, URINE (UA) AUTO NEGATIVE (NEGATIVE); KETONE, URINE AUTO NEGATIVE (NEGATIVE); LEUKOCYTE ESTERASE, URINE AUTO 3+ (NEGATIVE); MUCUS, URINE SMALL (NEGATIVE); NITRITE, URINE AUTO NEGATIVE (NEGATIVE); PROTEIN, URINE AUTO NEGATIVE (NEGATIVE); RBC, URINE AUTO 7 /HPF (0-3); SPECIFIC GRAVITY URINE AUTO 1.012 (1.002-1.035); SQUAMOUS EPITHELIAL CELL UR AU 4 /HPF (0-6); UROBILINOGEN, URINE AUTO 0.2 mg/dL (0.0-2.0); WBC, URINE AUTO 3 /HPF (0-3)
[2025-06-24 16:06] LABS: ALT/SGPT 21 U/L (7.0-40); AST/SGOT 20 U/L (<34); C REACTIVE PROTEIN QUANTITATIV < 0.50 MG/DL (<1.0); CALCIUM LEVEL 9.8 MG/DL (8.5-10.1); CARBON DIOXIDE LEVEL 27 MMOL/L (20-31); CHLORIDE LEVEL 105 MMOL/L (98-107); COMPLEMENT C4 30.5 MG/DL (12-36); CREATININE FOR GFR 0.88 MG/DL (0.55-1.30); GLOMERULAR FILTRATION RATE 87.3 (>60); POTASSIUM SERUM 4.4 MMOL/L (3.5-5.1); SODIUM LEVEL 143 MMOL/L (136-145)
[2025-06-24 16:14] LABS: TOTAL PROTEIN,RANDOM URINE 11.1 MG/DL (0.0-14.0)
[2025-06-29 14:02] LABS: COMPLEMENT TOTAL (CH50) > 60 U/mL (31-60)
[2025-06-30 08:21] LABS: PTT-LA 41 sec (<=40)
== END ==
LOC: M SFHCRHEU 13:29
PROVIDERS: ATTEND Internal Medicine Rheumatology
DX: M32.9 Systemic lupus erythematosus, unspecified (principal); M35.00 Sjogren syndrome, unspecified; R53.83 Other fatigue

== ENCOUNTER → 2025-07-19 | Outpatient (REF) | payer MEDICARE, MEDICAID | LOC: M LAB REF 16:52 | PROVIDERS: ATTEND Physician Assistant | DX: J20.9 Acute bronchitis, unspecified (principal) ==